=== PATIENT | male | born 1950 | race Caucasian/White ===

== ENCOUNTER 2017-05-03 08:49 | Day surgery (SDC) | payer OTHER, MEDICARE ==
[2017-05-02 17:33] VITALS: BMI 24.3
[2017-05-03] MEDS ORDERED: Lidocaine 1% PF 5 ML VIAL ONE (12:08)
[2017-05-03] MEDS ORDERED: PHENYLEPHRINE-NS 100 MCG/ML 10 ML SYRINGE ONE (12:08)
[2017-05-03] MEDS ORDERED: Propofol 200 MG/20 ML VIAL ONE (12:08)
--- NOTE | 2017-05-03 12:48 | OP ---
PREOPERATIVE DIAGNOSIS: History of colon polyps. DESCRIPTION OF PROCEDURE: After informed consent was obtained, the patient was placed in the left l ateral decubitus position. Anesthesia administered per the Anesthesia Department. Forward-viewing endoscope was inserted into the rectum after perianal inspection and rectal exam were normal and pas sed to the cecum. The cecum, ileocecal valve, and appendiceal orifice were normal. The prep was ex cellent. In the ascending colon, a medium size polyp was removed with snare electrocautery. In the transverse, two medium size polyps were removed with snare electrocautery. Diffuse diverticula wer e noted. The descending, sigmoid, and rectum were normal. Retroflexion in rectum showed internal h emorrhoids. ASSESSMENT: 1. Three medium colon polyps - status post polypectomy, one in the ascending and 2 in the transvers e colon. 2. Diffuse diverticulosis coli. 3. Internal hemorrhoids. RECOMMENDATIONS: Await histopathology.
== END 2017-05-03 13:25 | disposition home or self-care (01) ==
LOC: SDC 08:49
PROVIDERS: ATTEND Internal Medicine Gastroenterology
PROC: 0DBM8ZX Excision of Descending Colon, Via Natural or Artificial Opening Endoscopic, Diagnostic (ICD-10-PCS; principal; 2017-05-03)
PROC: 0DBK8ZX Excision of Ascending Colon, Via Natural or Artificial Opening Endoscopic, Diagnostic (ICD-10-PCS; principal; 2017-05-03)
PROC: 0DBL8ZX Excision of Transverse Colon, Via Natural or Artificial Opening Endoscopic, Diagnostic (ICD-10-PCS; principal; 2017-05-03)
DX: Z12.11 Encounter for screening for malignant neoplasm of colon (principal); I71.2 Thoracic aortic aneurysm, without rupture; D12.2 Benign neoplasm of ascending colon; D12.3 Benign neoplasm of transverse colon; K63.5 Polyp of colon; K57.30 Diverticulosis of large intestine without perforation or abscess without bleeding; K64.8 Other hemorrhoids; K21.9 Gastro-esophageal reflux disease without esophagitis; E03.9 Hypothyroidism, unspecified; Z79.899 Other long term (current) drug therapy; Z88.0 Allergy status to penicillin; Z88.8 Allergy status to other drugs, medicaments and biological substances; Z98.890 Other specified postprocedural states; Z87.891 Personal history of nicotine dependence; Z85.819 Personal history of malignant neoplasm of unspecified site of lip, oral cavity, and pharynx; Z92.21 Personal history of antineoplastic chemotherapy; Z92.3 Personal history of irradiation; Z86.010 Personal history of colon polyps
CPT/HCPCS: 88305; J2001; J2704

== ENCOUNTER 2020-01-26 13:52 | Outpatient (CLI) | payer OTHER, MEDICARE ==
--- NOTE | 2020-01-26 14:47 | ULT ---
SOFT TISSUE ULTRASOUND RIGHT NECK: Date: 01/26/2020 INDICATION: Nodule right neck in the submandibular region. History of tongue cancer. FINDINGS/IMPRESSION: Directed ultrasound to the palpable area of concern in the right submandibular region reveals a circu mscribed, oblong-shaped, lobulated soft tissue mass measuring 2.5 x 1.0 cm. Findings could represent enlarged lymph node or salivary gland. Recommend further evaluation with CT neck with IV contrast. POS: AH
== END 2020-01-26 13:53 | disposition home or self-care (01) ==
LOC: BICULT 13:52
DX: C01 Malignant neoplasm of base of tongue (principal); L90.5 Scar conditions and fibrosis of skin; R22.1 Localized swelling, mass and lump, neck; Z92.3 Personal history of irradiation
CPT/HCPCS: 76999

== ENCOUNTER 2020-03-30 16:15 | Outpatient (CLI) | payer OTHER, MEDICARE ==
[2020-03-31 12:01] LABS: SARS-CoV-2 MS2 Positive; SARS-CoV-2 N Gene Negative; SARS-CoV-2 S Gene Negative; SARS-CoV-2 by NAA Not Detected (NotDetected); SARS-CoV-2 orf1ab Negative
== END 2020-03-30 16:16 | disposition home or self-care (01) ==
LOC: LABBT 16:15
PROVIDERS: ATTEND Surgery
DX: C76.0 Malignant neoplasm of head, face and neck (principal); Z20.828 Contact with and (suspected) exposure to other viral communicable diseases
CPT/HCPCS: 87635; U0003

== ENCOUNTER 2020-04-01 12:28 | Outpatient (CLI) | payer OTHER, MEDICARE ==
--- NOTE | 2020-04-01 14:38 | CT ---
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 COMPARISON: 06/12/2005 FINDINGS: The CT from 15 years ago demonstrated an approximately 3 x 2 cm mass at the right base of tongue, and enlarged right level 2 lymph nodes, with the largest one measuring 3 x 1.5 cm (there was no actual submandibular space mass at that time) 15 years later, there are extensive postsurgical changes in the right upper neck. This includes resec tion of right mandibular body and angle, replaced by bone graft, with successful fusion. Metallic plate and screws along the right mandibular ramus. Multiple surgical clips or brachitherapy seeds thr oughout the right submandibular region. Large soft tissue defect of the right submandibular region. Fatty material consistent with surgical f lap lateral to the right side of the lower cavity. The previously demonstrated tumor mass at right base of tongue has been resected, along with portion of the tongue. Abutting the lateral aspect of the right side of the hyoid bone, and abutting the lateral aspect of the right oral cavity, there is a new soft tissue density mass with heterogeneous e nhancement measuring approximately 3 x 2.5 x 1.5 cm, suspicious for a new focus of malignant neoplasm in the surgical bed. There are no enlarged cervical lymph nodes. Extensive moderate to severe centrilobular emphysematous changes in the upper lung zones. Multilevel high-grade degenerative disc disease in the cervical spine. No pathology of larynx or hypopharynx. No major pathology of retropharyngeal spaces. 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 There is a large number of noncalcified mildly enlarged upper mediastinal lymph nodes and hilar lymph nodes, incompletely imaged. IMPRESSION: 1.) Postsurgical changes of right neck dissection, including partial right mandibulectomy, tumor rese ction of mass with right partial glossectomy, right anterior neck dissection, and surgical flap reconstruction of right oral cavity region. 2) evidence for a 3 x 2.5 x 1.5 cm neoplastic tumor mass in the right submandibular region, partially surrounding the right arm of the hyoid bone. This may represent the sarcoma mentioned in the history. 3) mediastinal and hilar lymphadenopathy, suspicious for malignant involvement, but incompletely imag ed. PET scan may be useful. CT of chest with contrast is recommended. 4) centrilobular emphysema. 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
== END 2020-04-01 12:29 | disposition home or self-care (01) ==
LOC: SCSCT 12:28
PROVIDERS: ATTEND Internal Medicine Hematology & Oncology
DX: C49.0 Malignant neoplasm of connective and soft tissue of head, face and neck (principal); J43.2 Centrilobular emphysema; R59.0 Localized enlarged lymph nodes; I65.22 Occlusion and stenosis of left carotid artery; D49.0 Neoplasm of unspecified behavior of digestive system; Z98.890 Other specified postprocedural states
CPT/HCPCS: 70491

== ENCOUNTER 2020-04-02 09:59 | Day surgery (SDC) | payer OTHER, MEDICARE ==
[2020-04-01 09:51] VITALS: BMI 24.5
[2020-04-02] MEDS ORDERED: Propofol 500 MG/50 ML VIAL ONE (12:41)
[2020-04-02] MEDS ORDERED: Bupivacaine 0.25% HCL 30 ML VIAL ONE ×2 (13:07→13:39)
[2020-04-02] MEDS ORDERED: Lidocaine 2% w/Epinephrine 1:200K 20 ML VIAL ONE ×2 (13:07→13:18)
[2020-04-02] MEDS ORDERED: Fentanyl 100 MCG/2 ML VIAL ONE (13:10)
[2020-04-02] MEDS ORDERED: EPINEPHrine 1 MG/ML AMP ONE (13:15)
[2020-04-02] MEDS ORDERED: PROPOFOL 200 MG/20 ML VIAL ONE (13:39)
[2020-04-02] MEDS ORDERED: Lidocaine 1% PF 5 ML VIAL ONE (13:39)
[2020-04-02] MEDS ORDERED: PHENYLEPHRINE-NS 100 MCG/ML 10 ML SYRINGE ONE (13:39)
[2020-04-02] MEDS ORDERED: EPHEDRINE 25 MG/5 ML SYRINGE ONE (13:39)
--- NOTE | 2020-04-02 14:42 | RAD ---
XR Chest 1 View HISTORY: Port-A-Cath placement COMPARISON: 06/26/2018 FINDINGS: There has been interval placement of a left internal jugular Port-A-Cath with tip in the pr ojection of the SVC. The heart size is normal. The aorta is tortuous The lungs are well expanded without focal areas of consolidation, pneumothorax or pleural effusions. IMPRESSION: No radiographic evidence of acute cardiopulmonary process.
--- NOTE | 2020-04-05 07:52 | OP ---
DATE OF PROCEDURE: 04/02/2020 PREOPERATIVE DIAGNOSIS: Head and neck cancer. POSTOPERATIVE DIAGNOSIS: Head and neck cancer. PROCEDURE PERFORMED: Tunneled central line with subcutaneous port (MediPort, CT injectable). ANESTHESIA: TIVA and local. ESTIMATED BLOOD LOSS: Minimal. COMPLICATIONS: None. SPECIMENS: None. FINDINGS: The tip of the catheter is at the atriocaval junction. DESCRIPTION OF PROCEDURE: The patient was taken to the operating room and laid supine on the operating room table. After sedation was obtained, bilateral neck and chest were shaved, prepped, and draped in a sterile fashion. Local anesthetic infiltrated over the left internal jugular vein. Internal jugular vein was cannulated using a 22-gauge Finder needle followed by a Seldinger needle. Wire was passed into the superior cava under fluoro guidance. A small ashley was made at the wire entrance site. A separate 3-cm incision was made in the left upper chest. Subcutaneous pocket was made below the lower incision. Tubing from the MediPort tunneled from the inferior to superior incision and suture sheath was placed over the wire into the superior vena cava. The dilator and wire were removed. The end of the catheter was sewed into the sheath. The sheath was peeled away. The tip of the catheter was at the atriocaval junction. MediPort tubing was cut to fit the MediPort at the lower incision, connected to the MediPort. The MediPort was sewn to the chest wall in the subcutaneous pocket using Prolene. The wounds were irrigated and closed using 3-0 Vicryl, 4-0 Monocryl, and Dermabond. The MediPort flushes and draws blood without difficulty. It was flushed with a heparin flush. The patient was sent to Recovery in stable condition. All instrument counts, needle counts, and lap counts were correct. Job ID: [id number]
== END 2020-04-02 15:20 | disposition home or self-care (01) ==
LOC: SDC 09:59
PROVIDERS: ATTEND Surgery
PROC: 02HV33Z Insertion of Infusion Device into Superior Vena Cava, Percutaneous Approach (ICD-10-PCS; principal; 2020-04-02)
DX: C76.0 Malignant neoplasm of head, face and neck (principal); E03.9 Hypothyroidism, unspecified; E78.00 Pure hypercholesterolemia, unspecified; Z79.899 Other long term (current) drug therapy; Z87.891 Personal history of nicotine dependence; Z88.8 Allergy status to other drugs, medicaments and biological substances
CPT/HCPCS: 71045; C1788; J0171; J0690; J1642; J2704; J3010; S0020

== ENCOUNTER 2022-02-03 09:02 | Outpatient (CLI) | payer MEDICARE | END 2022-02-03 09:03 | disposition home or self-care (01) | LOC: NM 09:02 | PROVIDERS: ATTEND Internal Medicine Hematology & Oncology | DX: C49.0 Malignant neoplasm of connective and soft tissue of head, face and neck (principal); R93.89 Abnormal findings on diagnostic imaging of other specified body structures | CPT/HCPCS: 78306; A9503 ==

== ENCOUNTER 2022-08-24 09:38 | Outpatient (CLI) | payer MEDICARE | END 2022-08-24 09:39 | disposition home or self-care (01) | LOC: BICRAD 09:38 | PROVIDERS: ATTEND Internal Medicine Hematology & Oncology | DX: R09.02 Hypoxemia (principal); C49.0 Malignant neoplasm of connective and soft tissue of head, face and neck; J98.8 Other specified respiratory disorders | CPT/HCPCS: 36415; 71046; 80053; 82248; 83615; 84100; 84550 ==

== ENCOUNTER 2023-07-30 10:00 | Inpatient (IN) | payer MEDICARE ==
[2023-07-30] MEDS ORDERED: Magnesium 2 GM/50 ML BAG (IN WATER) ONE (10:08)
[2023-07-30] MEDS ORDERED: methylPREDNISolone Sod Succ/PF 125 MG/2 ML VIAL ONE (10:08)
[2023-07-30] MEDS ORDERED: Ipratropium/Albuterol 3 ML NEB ONE (10:11)
[2023-07-30 10:19] LABS: #Basophils 0.1 thou/uL (0.0-0.2); #Monocytes 3.3 thou/uL (0.11-0.59); #Neutrophils 30.8 thou/uL (1.40-6.50); %Basophils 0.2 % (0.0-1.0); %Lymphocytes 4.1 % (21.0-51.0); %Monocytes 9.3 % (0.0-10.0); %Neutrophils 85.6 % (42.0-75.0); Hematocrit 44.7 % (42.0-52.0); Hemoglobin 14.3 g/dL (14.0-18.0); Manual Diff?? YES; Mean Corpuscular Volume 115.5 fl (78.0-98.0); Platelet Count 155 10x3/uL (130-400); Red Blood Cell (RBC) Count 3.87 mill/uL (4.70-6.10)
[2023-07-30 10:35] LABS: ALT (SGPT) 9 U/L (8-55); AST (SGOT) 17 U/L (5-34); Albumin 3.9 g/dL (3.4-4.8); Alkaline Phosphatase 172 U/L (40-110); Anion Gap 16 mmol/L (10-20); BUN (Urea Nitrogen) 31 mg/dL (8.4-25.7); Bilirubin, Total 1.6 mg/dL (0.2-1.2); Calc. Creatinine Clearance 0 mL/min (70-130); Calcium 9.2 mg/dL (7.8-10.44); Carbon Dioxide 25 mmol/L (23-31); Chloride 101 mmol/L (98-107); Estimated GFR 60; Glucose 232 mg/dL (83-110); Potassium 4.8 mmol/L (3.5-5.1); Protein, Total 6.9 g/dL (5.8-8.1); Sodium 137 mmol/L (136-145)
[2023-07-30 10:40] LABS: Troponin I 0.021 ng/mL (< 0.028)
[2023-07-30 10:52] LABS: Actual Bicarbonate (HCO3a) 26.7 mEq/L (22-28); Analyzer IN Cardio ER; Base Excess (BEa) -1.8 mEq/L (-2.0 to +3.0); Calcium, Ionized (arterial) 1.16 mmol/L (1.12-1.30); Carboxyhemoglobin (COHb) 3.2 gm% (0.0-3.0); Hematocrit-ABG 39 % (42.0-52.0); Hemoglobin (Hb) 13.4 g/dL (14.0-18.0); O2 Tension (PaO2), arterial 93.3 mmHg (> 70.0); Potassium - ABG Lab 4.17 mmol/L (3.70-5.30); pH, Arterial 7.247 (7.35-7.45)
[2023-07-30] MEDS ORDERED: LevoFLOXacin 750 mg/D5W 150 ml Premix Bag ONE (11:17)
[2023-07-30 11:23] LABS: CO2 Tension 62.8 mmHg (35.0-45.0); Puncture Site RRA
[2023-07-30 11:26] LABS: CellaVision Operator ID LAB.KB; Macrocytosis SLIGHT = 6-15 cells HPF (0-5); Platelet Adequacy Comment Platelets Normal; Polychromasia SLIGHT = 2-3 cells HPF (0-2)
[2023-07-30 11:57] LABS: Band 7 % (5-11); Lymphocytes 3 % (21-51); Monocytes 7 % (0-10); Neutrophil 83 % (42-75); Total Cell Count 102
[2023-07-30] MEDS ORDERED: Electrolyte Replacement Protocol 1 EACH IVPB SCH (12:18)
[2023-07-30] MEDS ORDERED: Acetaminophen 325 MG TAB PER TUBE PRN (12:18)
[2023-07-30] MEDS ORDERED: Midodrine HCl 5 MG TAB PO SCH (13:00)
[2023-07-30] MEDS ORDERED: Iopamidol-370 76% 500 ML MDV (1 ML CHARGE) ONE (13:31)
[2023-07-30 15:02] LABS: Troponin I 0.031 ng/mL (< 0.028)
[2023-07-30] MEDS: Ipratropium/Albuterol 3 ML NEB NEB SCH ×2 (15:47→19:36)
[2023-07-30] MEDS: Nicotine 14 MG PATCH TD SCH (16:17)
[2023-07-30] MEDS: Gabapentin 300 MG CAP PER TUBE SCH ×2 (16:18→20:37)
[2023-07-30 17:42] LABS: Troponin I Less than 0.010 ng/mL (< 0.028)
[2023-07-30] MEDS: Sodium Chloride 0.9% 1,000 ML IV SCH ×2 (19:24→23:50)
[2023-07-30] MEDS: Midodrine HCl 5 MG TAB PER TUBE SCH (20:38)
[2023-07-30] MEDS: Famotidine 40 MG/5 ML Oral Suspension PER TUBE SCH (20:38)
[2023-07-30] MEDS: Timolol 0.5% Ophth Soln 5 ml Bottle EA EYE SCH (21:22)
[2023-07-30] MEDS: Latanoprost 0.005% Ophth Soln 2.5 ml Bottle EA EYE SCH (21:22)
[2023-07-31] MEDS: Ipratropium/Albuterol 3 ML NEB NEB SCH ×5 (01:18→23:22)
[2023-07-31] MEDS: methylPREDNISolone Sod Succ 40 MG VIAL IVP SCH ×4 (05:08→23:47)
[2023-07-31] MEDS: Levothyroxine Sodium 88 MCG TAB PER TUBE SCH (05:08)
[2023-07-31 05:30] LABS: Hemoglobin 11.5 g/dL (14.0-18.0); Manual Diff?? YES; Mean Corpuscular HGB CONC 32.3 g/dL (32.0-36.0); Mean Corpuscular Hemoglobin 37.2 pg (27.0-31.0); Mean Corpuscular Volume 115.2 fl (78.0-98.0); Mean Platelet Volume 12.5 fL (7.4-10.4); Platelet Count 116 10x3/uL (130-400); Red Blood Cell (RBC) Count 3.09 mill/uL (4.70-6.10); White Blood Cell (WBC) Count 27.2 10x3/uL (4.8-10.8)
[2023-07-31 05:40] LABS: Hematocrit 35.6 % (42.0-52.0)
[2023-07-31 05:41] LABS: Delete Auto Diff?? YES
[2023-07-31 05:52] LABS: Anion Gap 10 mmol/L (10-20); BUN (Urea Nitrogen) 38 mg/dL (8.4-25.7); Calc. Creatinine Clearance 66 mL/min (70-130); Calcium 8.6 mg/dL (7.8-10.44); Carbon Dioxide 27 mmol/L (23-31); Chloride 107 mmol/L (98-107); Estimated GFR 83; Glucose 138 mg/dL (83-110); Potassium 4.5 mmol/L (3.5-5.1); Sodium 139 mmol/L (136-145)
[2023-07-31 06:06] LABS: Anisocytosis SLIGHT = 6-15 cells HPF (0-5); Band 19 % (5-11); CellaVision Operator ID lab.sh2; Macrocytosis MODERATE=16-30 cells HPF (0-5); Metamyelocyte 5 % (0-0); Monocytes 7 % (0-10); Neutrophil 70 % (42-75); Platelet Adequacy Comment Platelets Decreased; Polychromasia SLIGHT = 2-3 cells HPF (0-2); Smudge Cells 4.8 %; Total Cell Count 105; Vacuoles SLIGHT
[2023-07-31 09:15] VITALS: BMI 20.6
[2023-07-31] MEDS: Timolol 0.5% Ophth Soln 5 ml Bottle EA EYE SCH ×2 (10:13→21:58)
[2023-07-31] MEDS: Gabapentin 300 MG CAP PER TUBE SCH ×3 (10:14→20:45)
[2023-07-31] MEDS: Famotidine 40 MG/5 ML Oral Suspension PER TUBE SCH ×3 (10:15→20:45)
[2023-07-31] MEDS: DULoxetine 60 MG CAP PO SCH (10:15)
[2023-07-31] MEDS: Midodrine HCl 5 MG TAB PER TUBE SCH ×3 (10:15→20:45)
[2023-07-31] MEDS: Sodium Chloride 0.9% 1,000 ML IV SCH (13:29)
[2023-07-31] MEDS ORDERED: LevoFLOXacin 750 mg/D5W 750 MG in Premix 1 BAG IVPB SCH (14:00)
[2023-07-31] MEDS: Nicotine 14 MG PATCH TD SCH (14:11)
[2023-07-31] MEDS: Latanoprost 0.005% Ophth Soln 2.5 ml Bottle EA EYE SCH (21:57)
[2023-08-01 05:32] LABS: #Monocytes 0.6 thou/uL (0.11-0.59); #Neutrophils 20.2 thou/uL (1.40-6.50); %Basophils 0.1 % (0.0-1.0); %Lymphocytes 1.1 % (21.0-51.0); %Monocytes 2.7 % (0.0-10.0); %Neutrophils 95.6 % (42.0-75.0); Hemoglobin 11.1 g/dL (14.0-18.0); Mean Corpuscular HGB CONC 32.6 g/dL (32.0-36.0); Mean Corpuscular Hemoglobin 36.9 pg (27.0-31.0); Mean Platelet Volume 12.2 fL (7.4-10.4); Platelet Count 124 10x3/uL (130-400); RBC Distribution Width 13.6 % (11.5-14.5); Red Blood Cell (RBC) Count 3.01 mill/uL (4.70-6.10); White Blood Cell (WBC) Count 21.2 10x3/uL (4.8-10.8)
[2023-08-01 06:14] LABS: Anion Gap 11 mmol/L (10-20); BUN (Urea Nitrogen) 39 mg/dL (8.4-25.7); Calc. Creatinine Clearance 80 mL/min (70-130); Calcium 8.7 mg/dL (7.8-10.44); Carbon Dioxide 25 mmol/L (23-31); Chloride 108 mmol/L (98-107); Estimated GFR 94; Glucose 177 mg/dL (83-110); Potassium 4.3 mmol/L (3.5-5.1); Sodium 140 mmol/L (136-145)
[2023-08-01] MEDS: Ipratropium/Albuterol 3 ML NEB NEB SCH ×2 (07:08→14:24)
[2023-08-01] MEDS ORDERED: predniSONE 20 MG TAB PER TUBE SCH (08:30)
[2023-08-01] MEDS: Levothyroxine Sodium 88 MCG TAB PER TUBE SCH (10:01)
[2023-08-01] MEDS: Gabapentin 300 MG CAP PER TUBE SCH (10:02)
[2023-08-01] MEDS: Midodrine HCl 5 MG TAB PER TUBE SCH (10:02)
[2023-08-01] MEDS: Timolol 0.5% Ophth Soln 5 ml Bottle EA EYE SCH (10:03)
[2023-08-01] MEDS: Famotidine 40 MG/5 ML Oral Suspension PER TUBE SCH (10:03)
[2023-08-01] MEDS: DULoxetine 60 MG CAP PO SCH (10:03)
[2023-08-01 10:05] VITALS: BP 122/84
[2023-08-01 12:28] VITALS: TEMP 98
[2023-08-02] MEDS ORDERED: predniSONE 20 MG TAB PER TUBE SCH (08:00)
== END 2023-08-01 17:30 | disposition home or self-care (01) | DRG 177 ==
LOC: ERS 10:00 → ERHOLD 11:58 → IMCU/EMU 15:39
PROVIDERS: ADMIT Family Medicine; ATTEND Family Medicine
PROC: 4A033R1 Measurement of Arterial Saturation, Peripheral, Percutaneous Approach (ICD-10-PCS; principal; 2023-07-30)
DX: J69.0 Pneumonitis due to inhalation of food and vomit (principal); J96.01 Acute respiratory failure with hypoxia; J96.02 Acute respiratory failure with hypercapnia; M48.52XA Collapsed vertebra, not elsewhere classified, cervical region, initial encounter for fracture; M48.54XA Collapsed vertebra, not elsewhere classified, thoracic region, initial encounter for fracture; D69.6 Thrombocytopenia, unspecified; I95.89 Other hypotension; Z66 Do not resuscitate; G62.9 Polyneuropathy, unspecified; I71.21 Aneurysm of the ascending aorta, without rupture; I65.22 Occlusion and stenosis of left carotid artery; I65.21 Occlusion and stenosis of right carotid artery; Z79.899 Other long term (current) drug therapy; E03.9 Hypothyroidism, unspecified; Z88.8 Allergy status to other drugs, medicaments and biological substances; F17.210 Nicotine dependence, cigarettes, uncomplicated
CPT/HCPCS: 36415; 36600; 70450; 70496; 70498; 71045; 71275; 80048; 80053; 82805; 83605; 83880; 84484; 85025; 87040; 93005; 94660; J1956; J2920; J2930; J3475; J7050; J7512; J7620; Q9967

== ENCOUNTER 2023-11-08 09:41 | Day surgery (SDC) | payer MEDICARE ==
[2023-11-07 13:42] VITALS: BMI 23.0
[~2023-11-08 09:41] MED LIST: EPINEPHrine 0.3 MG in Ophthalmic Irrigation Solution 500 ML IRR SCH
[2023-11-08] MEDS ORDERED: Lidocaine 1% PF 5 ML VIAL ONE ×2 (12:07→14:12)
[2023-11-08] MEDS ORDERED: PROPOFOL 20 ML ONE (12:07)
[2023-11-08] MEDS ORDERED: fentaNYL 50 mcg/mL 1 mL Vial ONE ×2 (12:16→12:26)
[2023-11-08] MEDS ORDERED: PHENYLephrine 2.5% Ophth Soln 15 ml Bottle ONE (12:17)
[2023-11-08] MEDS ORDERED: Midazolam HCl 2 mg/2 ml Vial ONE (12:27)
[2023-11-08] MEDS ORDERED: Glycopyrrolate 0.2 MG/ML 5 ML SYRINGE ONE (13:28)
[2023-11-08] MEDS ORDERED: Bupivacaine 0.75% 10 ML VIAL ONE (14:12)
[2023-11-08] MEDS ORDERED: Triamcinolone 40 MG/ML VIAL ONE (14:12)
[2023-11-08] MEDS ORDERED: Lidocaine 4% PF 5 ML AMP ONE (14:12)
[2023-11-08] MEDS ORDERED: CEFAZOLIN 1 GM VIAL ONE (14:12)
[2023-11-08] MEDS ORDERED: Maxitrol 0.1% Opth Oint 3.5 GM TUBE ONE (14:12)
[2023-11-08] MEDS ORDERED: ePHEDrine Sulfate 50 MG/10 ML VIAL ONE (14:22)
== END 2023-11-08 17:05 | disposition home or self-care (01) ==
LOC: SDC 09:41
PROVIDERS: ATTEND Ophthalmology Retina Specialist
PROC: 08PJ3JZ Removal of Synthetic Substitute from Right Lens, Percutaneous Approach (ICD-10-PCS; principal; 2023-11-08)
PROC: 08RJ3JZ Replacement of Right Lens with Synthetic Substitute, Percutaneous Approach (ICD-10-PCS; 2023-11-08)
DX: T85.22XA Displacement of intraocular lens, initial encounter (principal); H54.2X Low vision, both eyes, different category levels; N40.0 Benign prostatic hyperplasia without lower urinary tract symptoms; I95.9 Hypotension, unspecified
CPT/HCPCS: 66986; J3010; J0171; J0690; J2250; J2704; J3301; J3490